=== PATIENT | female | born 1955 | race Caucasian/White ===

== ENCOUNTER 2022-06-27 15:03 | Emergency (ER) | payer OTHER, SELFPAY ==
[2022-06-27 15:14] VITALS: BP 153/71; PULSE 64; RESP 20; TEMP 36.7; O2SAT 97
--- NOTE | 2022-06-27 15:30 | DI.RAD_ITS ---
Exam(s) XR RIBS RT PA CHEST 3V EXAM: XR RIBS RT PA CHEST 3V CLINICAL HISTORY: Trauma, Fall. TECHNIQUE: 2D digital imaging was performed. COMPARISON: No exams were available for comparison FINDINGS: No obvious right rib fractures. Heart size normal. Mediastinum not widened. No infiltrates nor pleural effusions. No pulmonary mallory ma. No pneumothorax. Some degenerative changes noted in the right glenohumeral joint. IMPRESSION: DATA REPOSITORY: RADIATION DOSE DELIVERED:
--- NOTE | 2022-06-27 15:30 | DI.RAD_ITS ---
Exam(s) XR ELBOW RT COMPLETE EXAM: XR ELBOW RT COMPLETE CLINICAL HISTORY: Trauma. TECHNIQUE: 2D digital imaging was performed. COMPARISON: No exams were available for comparison FINDINGS: 3 views No evidence fracture nor joint effusion. No swelling of the olecranon bursa. Radial head and neck u nremarkable. Some changes around the medial epicondyle may suggest epicondylitis. Correlation with clinical findings recommended IMPRESSION: DATA REPOSITORY: RADIATION DOSE DELIVERED:
--- NOTE | 2022-06-27 15:30 | ED.GENADUL_ITS ---
Discharge Plan Disposition Patient Disposition: HOME Condition: Stable Discharge Details Clinical Impression: Closed fracture of right scapula Primary Care Provider: Unknown,Unknown ED Provider: Mila Mcclain Home Meds and New Rx's Prescriptions: Continued atorvastatin 40 mg Tablet 40 mg PO QHS cetirizine [Zyrtec] 10 mg Tablet 10 mg PO DAILY isosorbide mononitrate 30 mg Tablet Extended Release 24 Hr 30 mg PO DAILY clopidogrel 75 mg Tablet 75 mg PO DAILY aspirin 81 mg Tablet,Delayed Release (Dr/Ec) 81 mg triamterene-hydrochlorothiazid 37.5-25 mg Capsule 1 cap PO DAILY pantoprazole 40 mg Tablet,Delayed Release (Dr/Ec) 40 mg PO DAILY atenolol 50 mg Tablet 50 mg PO DAILY bupropion HCl 300 mg Tablet Extended Release 24 Hr 300 mg PO DAILY cholecalciferol (vitamin D3) 50 mcg (2,000 unit) Capsule 50 mcg PO DAILY levothyroxine 125 mcg Capsule 125 mcg PO DAILY duloxetine 30 mg Capsule, Delayed Rel Sprinkle 30 mg PO BID Discharge Instructions Instructions: Scapular Fracture (ED) Additional Instructions: CT shows a broken scapula neck. The treatment for this is shoulder sling and immobilization for 1 to 2 weeks. Please follow-up with orthopedics within the next 1 to 2 weeks. Please take Tylenol or Ibuprofen with food every 4-6 hours as needed for pain and swelling. Rest ice. Return to the ER for any worsening pain, trouble breathing, headache, nausea vomiting, confusion blurry vision or any concerns. Referrals: Aditya Rosales MD [ [facility] STAFF PHYSICIAN] - 1 week Medical Decision Making 67-year-old female presents to the ER by POV after falling approximately 5 to 6 feet off of bleachers approximately 20 minutes prior to arrival landing on her right shoulder. Patient is alert and oriented x4. X-rays of right rib, shoulder and elbow ordered. Oxycodone and Zofran. At this time I do not feel that CT is warranted due to patient not complaining of headache no loss of consciousness. No focal neurodeficits noted. Per V rad x-ray shows possible scapular fracture recommend CT. CT ordered. CT shows a moderately displaced scapular neck fracture. Patient placed in a shoulder immobilizer and sling and discussed follow-up care with orthopedics in the next 1 to 2 weeks. Discussed home care. Patient sent home with 4 tablets of 5 mg oxycodone. Instructed on rest ice. This text was generated using [employer] dictation system, please disregard any oddities of phrase or misspellings. Medical Records Medical records reviewed: Yes I reviewed the patient's medical records. Imaging Data Radiologic Study: Imaging: X-Ray Radiologist's impression: maging protocol: Radiologic exam of the Right shoulder. Views: 2 or more views. COMPARISON: No relevant prior studies available. FINDINGS: Bones/joints: Previous acromioplasty. No dislocation. Mild to moderate glenohumeral joint degenerative features. Posterior aspect of the scapular spine region appears to show a cortical breach or step-off period see series 4, image 1. And irregularity in this region is also suggested on series 1, image 1. Cannot exclude a scapular fracture. Recommend clinical correlation. CT may be warranted for further evaluation. Soft tissues: Unremarkable soft tissues. No foreign body. No significant soft tissue swelling. IMPRESSION: 1. Previous acromioplasty. 2. Medial posterior aspect of the scapular spine with a cortical irregularity. Cannot exclude a minor fracture. Recommend clinical correlation. If there is concern for a fracture in this region based on examination, a CT follow-up is suggested. 3. Degenerative glenohumeral joint. Radiologic Study #2: Imaging: CT Scan Radiologist's impression: COMPARISON: CR XR SHOULDER RT COMPLETE 2+V 06/27/2022 5:05 PM FINDINGS: Bones/joints: There is a fracture of the medial aspect of the scapular spine. This does show moderate displacement. This correlates with the earlier plain film abnormality. This is well appreciated on sagittal series 6, images 68 through 116. There is no fracture of the scapular body. The acromion is intact. No clavicular fracture evident. Proximal humerus is intact. There is moderate degenerative change of the glenohumeral joint. Soft tissues: Soft tissues are unremarkable. No significant hematoma. IMPRESSION: 1. Mildly displaced scapular fracture involving the anterior and medial aspect of the scapular spine. 2. Glenohumeral joint degenerative changes. 3. Scarring of the right lung apex. No consolidation. No pneumothorax evident. 4. No significant soft tissue hematoma. HPI General Mode of arrival: ambulatory . Date/Time Provider Initiated Documentation: 06/27/22 15:13 . Information obtained by: patient, RN notes reviewed and old records reviewed . HPI Narrative: 67-year-old female presents to the ER by POV after falling approximately 5 to 6 feet off of bleachers approximately 20 minutes prior to arrival landing on her right shoulder. She denies any loss of consciousness no neck pain or headache. She is complaining of right shoulder and right sided chest wall pain. She does have some ecchymosis noted to her right shoulder and right elbow. She was helped up on scene and was ambulatory thereafter and drove herself here. She is alert and oriented x4. She does take Plavix and aspirin. She does have a past medical history of CAD, CVA, GERD, hypertension and obstructive apnea. She denies any abdominal pain no hip pain pelvis is stable. She also has a superficial abrasion noted to her right anterior hightower. Related Data Home Medications Medication Instructions Recorded Confirmed aspirin 81 mg tablet,delayed 81 mg 06/27/22 release atenolol 50 mg tablet 50 mg PO DAILY 06/27/22 06/27/22 atorvastatin 40 mg tablet 40 mg PO QHS 06/27/22 06/27/22 bupropion HCl 300 mg 24 hr tablet, 300 mg PO DAILY 06/27/22 06/27/22 extended release cetirizine 10 mg tablet (Zyrtec) 10 mg PO DAILY 06/27/22 06/27/22 cholecalciferol (vitamin D3) 50 50 mcg PO DAILY 06/27/22 06/27/22 mcg (2,000 unit) capsule clopidogrel 75 mg tablet 75 mg PO DAILY 06/27/22 06/27/22 duloxetine 30 mg capsule,delayed 30 mg PO BID 06/27/22 06/27/22 release sprinkle isosorbide mononitrate 30 mg 30 mg PO DAILY 06/27/22 06/27/22 tablet,extended release 24 hr levothyroxine 125 mcg capsule 125 mcg PO DAILY 06/27/22 06/27/22 pantoprazole 40 mg tablet,delayed 40 mg PO DAILY 06/27/22 06/27/22 release triamterene 37.5 1 cap PO DAILY 06/27/22 06/27/22 mg-hydrochlorothiazide 25 mg capsule Allergies Allergy/AdvReac Type Severity Reaction Status Date / Time No Known Allergies Allergy Unverified 06/27/22 15:29 General Stated Complaint: Trauma NICOLE: 2 PFSH All Active Problems (Updated 06/27/22 @ 19:09 by Mila Mcclain NP) Closed fracture of right scapula (Acute) Medical History (Updated 06/27/22 @ 19:09 by Mila Mcclain NP) CAD (coronary artery disease) CVA (cerebral vascular accident) GERD (gastroesophageal reflux disease) Hypertension Obstructive apnea Social History Smoking/Tobacco Use Status: Never Smoking risk assessment performed?: Yes Alcohol Intake: never Substance use type: does not use Do you feel safe at home: Yes Do you feel safe in your relationship?: Yes Exam Narrative Exam Narrative: General: Well Developed, Awake and Alert, conversant. Skin: Warm and Dry HEENT: Head: No palpable deformities, Normocephalic Eyes: Pupils PERRLA, EOM's intact. No periorbital eccymosis or step off Ears: Canal patent. Tympanic membranes are clear . No reyna's sign, no hemptympanum. Nose/Face: Atraumatic. Facial bones nontender to palpation and stable with manipulation. Mouth/Throat: No intraoral trauma. Teeth and mandible are intact. Neck: No midline tenderness, no step off, no deformity to palpation of C-spine. Trachea midline. Chest: No surface trauma. Nontender without crepitus or deformity. Lungs clear to ausculatation bilaterally. Heart: RRR, no rubs, murmurs or gallop. Abdomen: No abrasions, ecchymosis, or surface trauma. Nondistended. Nontender to palpation no guarding, rebound, or rigidity. Pelvis: Nontender to palpation and stable to compression. Femoral pulses strong and equal Extremities: Sensation intact. Peripheral pulses intact and equal. Tenderness to the right shoulder with palpation. Right elbow tenderness small contusion noted lateral aspect of the right elbow Neuro: ANO x4, GCS 15, cranial nerves II through XII intact. Motor and sensory exam nonfocal. Reflexes are symmetric. Course Vital Signs Vital signs: Vital Signs Temperature 36.7 C 06/27/22 15:14 Pulse 64 06/27/22 15:14 Respiratory Rate 20 06/27/22 15:14 Blood Pressure 153/71 H 06/27/22 15:14 Pulse Oximetry 97 06/27/22 15:14 Temperature 36.7 C 06/27/22 15:14 Temperature Source Temporal Artery Scan 06/27/22 15:14 Pulse 64 06/27/22 15:14 Respiratory Rate 20 06/27/22 15:14 Respiratory Effort Non-Labored 06/27/22 15:23 Blood Pressure 153/71 H 06/27/22 15:14 Blood Pressure Position Sitting 06/27/22 15:14 Pulse Oximetry 97 06/27/22 15:14 Oxygen Delivery Method Room Air 06/27/22 15:14 Oxygen Flow Rate 0 06/27/22 15:14 Pain Level 10 06/27/22 15:14
--- NOTE | 2022-06-27 15:30 | DI.RAD_ITS ---
Exam(s) XR SHOULDER RT COMPLETE 2+V EXAM: XR SHOULDER RT COMPLETE 2+V CLINICAL HISTORY: Trauma. TECHNIQUE: 2D digital imaging was performed. COMPARISON: No exams were available for comparison FINDINGS: Four views. No evidence of fracture or dislocation. Mild superior subluxation of the humeral head in the glenoid fossa. Moderate degenerative changes in the glenohumeral joint. Widening of the AC joint is most p robably postsurgical. There are findings in the glenohumeral joint specifically at the osseous gleno id which may be related to prior labral surgery. IMPRESSION: Subtle evidence of previous surgery in the right shoulder. No evidence of acute fracture or dislocation. DATA REPOSITORY: RADIATION DOSE DELIVERED:
[2022-06-27] MEDS: oxyCODONE 5 MG TAB PO (15:45)
[2022-06-27] MEDS: Ondansetron O.D.T. 4 MG TABEF PO (15:45)
--- NOTE | 2022-06-27 18:07 | DI.VRAD_ITS ---
PROCEDURE INFORMATION: Exam: XR Right Elbow Exam date and time: 06/27/2022 5:22 PM Age: 67 years old Clinical indication: Other: Trauma, fall TECHNIQUE: Imaging protocol: Radiologic exam of the Right elbow. Views: 3 or more views. COMPARISON: CR XR SHOULDER RT COMPLETE 2+V 06/27/2022 5:05 PM FINDINGS: Bones/joints: Normal. Soft tissues: Soft tissue swelling of the proximal posterior forearm. No soft tissue foreign body. IMPRESSION: 1. No acute findings. 2. No fracture or dislocation. 3. No hemarthrosis. 4. Mild soft tissue swelling. Dictated and Authenticated by: Low Augustin MD. Ordering:TRISHA Zaragoza MD
--- NOTE | 2022-06-27 18:14 | DI.VRAD_ITS ---
PROCEDURE INFORMATION: Exam: XR Right Shoulder Exam date and time: 06/27/2022 5:05 PM Age: 67 years old Clinical indication: Pain; Other: Trauma, fall TECHNIQUE: Imaging protocol: Radiologic exam of the Right shoulder. Views: 2 or more views. COMPARISON: No relevant prior studies available. FINDINGS: Bones/joints: Previous acromioplasty. No dislocation. Mild to moderate glenohumeral joint degenerative features. Posterior aspect of the scapular spine region appears to show a cortical breach or step-off period see series 4, image 1. And irregularity in this region is also suggested on series 1, image 1. Cannot exclude a scapular fracture. Recommend clinical correlation. CT may be warranted for further evaluation. Soft tissues: Unremarkable soft tissues. No foreign body. No significant soft tissue swelling. IMPRESSION: 1. Previous acromioplasty. 2. Medial posterior aspect of the scapular spine with a cortical irregularity. Cannot exclude a minor fracture. Recommend clinical correlation. If there is concern for a fracture in this region based on examination, a CT follow-up is suggested. 3. Degenerative glenohumeral joint. Dictated and Authenticated by: Low Augustin MD. Ordering:TRISHA Zaragoza MD
--- NOTE | 2022-06-27 18:17 | DI.VRAD_ITS ---
PROCEDURE INFORMATION: Exam: XR Right Ribs Exam date and time: 06/27/2022 5:09 PM Age: 67 years old Clinical indication: Other: Fall, trauma; Patient HX: Fall, trauma TECHNIQUE: Imaging protocol: Radiologic exam of the Right ribs. Views: 2 views. COMPARISON: CR XR SHOULDER RT COMPLETE 2+V 06/27/2022 5:05 PM FINDINGS: Bones/joints: Normal. Soft tissues: Normal. IMPRESSION: 1. No acute findings. 2. No fracture evident. No focal bone lesions noted. PROCEDURE INFORMATION: Exam: XR Chest Exam date and time: 06/27/2022 5:09 PM Age: 67 years old Clinical indication: Other: Fall, trauma; Patient HX: Fall, trauma TECHNIQUE: Imaging protocol: Radiologic exam of the chest. Views: 1 view. COMPARISON: CR XR SHOULDER RT COMPLETE 2+V 06/27/2022 5:05 PM FINDINGS: Lungs: Unremarkable. No consolidation. Pleural spaces: Unremarkable. No pleural effusion. No pneumothorax. Heart/Mediastinum: Unremarkable. No cardiomegaly. Bones/joints: Degenerative thoracic spine. IMPRESSION: 1. No acute findings. 2. Clear lungs and pleural space. Dictated and Authenticated by: Low Augustin MD. Ordering:TRISHA Zaragoza MD
--- NOTE | 2022-06-27 18:50 | DI.CT_ITS ---
Exam(s) CT UPPER EXTREMITY RT WO EXAM: CT UPPER EXTREMITY RT WO CLINICAL HISTORY: R/O shoulder/scapula fracture TECHNIQUE: Imaging Protocol: Axial computed tomography images with coronal and sagittal reformatted images were created and reviewed. CONTRAST MATERIAL: None COMPARISON: CR,XR XR SHOULDER RT COMPLETE 2+V from 06/27/2022 FINDINGS: OSSEOUS: There is a fracture of the scapular spine with some displacement. Remainder of the body of the scapula is intact as is the coracoid process and there is no fracture involving the osseous gleno id although there are advanced osteoarthritic degenerative changes in the glenohumeral joint with cee nt space narrowing, degenerative subarticular cyst and a knight-type osteophyte on the inferior articu lar surface of the humeral head. There is no dislocation of glenohumeral joint. No fracture of the humeral head and neck. Degenerative cysts noted in the greater tuberosity on the lateral aspect of t he humeral head but no fracture of the greater tuberosity. The acromion is intact. No fracture of t he ipsilateral clavicle. No adjacent rib fractures no pneumothorax IMPRESSION: Scapular fracture involving the scapular spine with some displacement. No fracture of the osseous gl enoid, nor the humeral head-neck. Clavicle intact. Advanced degenerative changes in the glenohumeral joint noted. RADIATION DOSE DELIVERED: 825.72mGy.cm Total DLP DATA REPOSITORY: All CT scans at this facility are submitted to the National Radiology Data Registry (NRDR) Dose Index Registry (DIR) with the [employer] ([employer]). RADIATION OPTIMIZATION: All CT scans at this facility use at least one of these dose optimization te chniques: automated exposure control; mA and/or kV adjustment per patient size (includes targeted exa ms where dose is matched to clinical indication); or iterative reconstruction.
--- NOTE | 2022-06-27 19:02 | DI.VRAD_ITS ---
PROCEDURE INFORMATION: Exam: CT Right Upper Extremity Without Contrast, Shoulder Exam date and time: 06/27/2022 6:42 PM Age: 67 years old Clinical indication: Shoulder; Right; Patient HX: Scapular pain R/O FX TECHNIQUE: Imaging protocol: Computed tomography of the Right upper extremity without contrast. Exam focused on the shoulder. Radiation optimization: All CT scans at this facility use at least one of these dose optimization techniques: automated exposure control; mA and/or kV adjustment per patient size (includes targeted exams where dose is matched to clinical indication); or iterative reconstruction. COMPARISON: CR XR SHOULDER RT COMPLETE 2+V 06/27/2022 5:05 PM FINDINGS: Bones/joints: There is a fracture of the medial aspect of the scapular spine. This does show moderate displacement. This correlates with the earlier plain film abnormality. This is well appreciated on sagittal series 6, images 68 through 116. There is no fracture of the scapular body. The acromion is intact. No clavicular fracture evident. Proximal humerus is intact. There is moderate degenerative change of the glenohumeral joint. Soft tissues: Soft tissues are unremarkable. No significant hematoma. IMPRESSION: 1. Mildly displaced scapular fracture involving the anterior and medial aspect of the scapular spine. 2. Glenohumeral joint degenerative changes. 3. Scarring of the right lung apex. No consolidation. No pneumothorax evident. 4. No significant soft tissue hematoma. Dictated and Authenticated by: Low Augustin MD. Ordering:TRISHA Zaragoza MD
== END 2022-06-27 19:24 | disposition home or self-care (01) ==
PROVIDERS: Emergency Provider Registered Nurse Emergency
DX: S42.151A Displaced fracture of neck of scapula, right shoulder, initial encounter for closed fracture (principal); I10 Essential (primary) hypertension; S50.01XA Contusion of right elbow, initial encounter; W17.89XA Other fall from one level to another, initial encounter; Z86.73 Personal history of transient ischemic attack (TIA), and cerebral infarction without residual deficits; Z79.899 Other long term (current) drug therapy
CPT/HCPCS: 99284; 71046; 71100; 73030; 73080; 73200